=== PATIENT | female | born 1975 | race American Indian/Alaskan Native ===

== ENCOUNTER 2018-01-13 17:51 | Emergency (ER) | payer OTHER ==
[2018-01-13 18:06] VITALS: BP 135/80
[2018-01-13] MEDS ORDERED: NORCO 7.5/325 PO ONE (18:28)
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
== END 2018-01-13 23:01 | disposition home or self-care (01) ==
LOC: ED 17:51
DX: S39.012A Strain of muscle, fascia and tendon of lower back, initial encounter (principal); S76.911A Strain of unspecified muscles, fascia and tendons at thigh level, right thigh, initial encounter; S96.911A Strain of unspecified muscle and tendon at ankle and foot level, right foot, initial encounter; Z88.2 Allergy status to sulfonamides; V89.2XXA Person injured in unspecified motor-vehicle accident, traffic, initial encounter; Y93.89 Activity, other specified; Y92.89 Other specified places as the place of occurrence of the external cause; Y99.8 Other external cause status
CPT/HCPCS: 72220; 99283